=== PATIENT | female | born 1970 | race Caucasian/White ===

== ENCOUNTER 2018-08-04 18:38 | Emergency (ER) | payer BC ==
[~2018-08-04] VITALS: Ht 177.8 cm; Wt 65.8 kg
[2018-08-04] MEDS ORDERED: MORPHINE SULFATE INJ 4 MG/ML INJ IM PRN (19:00)
[2018-08-04] MEDS ORDERED: ONDANSETRON HCL 4 MG ORAL DISINTEGRATING TAB PO ONE (19:00)
--- NOTE | 2018-08-04 19:45 | Diagnostic Imaging Report ---
Exam: Left knee 3 views History: Pain Comparison: None. Findings: No fracture or malalignment. Joint spaces preserved. Prepatellar swelling. Impression: No acute osseous abnormality Prepatellar swelling Signed by: Dr. Cj Cui M.D. on 08/04/2018 7:42 PM
[2018-08-04] MEDS ORDERED: TYLENOL WITH C1 EACH PO (19:53)
[2018-08-04] MEDS ORDERED: IBUPROFEN400 MG PO (19:53)
[2018-08-04] MEDS ORDERED: ZOFRAN ODT4 MG SL (19:53)
== END 2018-08-04 20:28 | disposition home or self-care (01) ==
LOC: FSED 18:38
DX: S80.02XA Contusion of left knee, initial encounter (principal); M25.462 Effusion, left knee; W18.39XA Other fall on same level, initial encounter
CPT/HCPCS: 73562; 99283; J2270; Q0162

== ENCOUNTER 2021-03-29 07:31 | Emergency (ER) | payer BC ==
[~2021-03-29] VITALS: Ht 175.3 cm; Wt 69.0 kg
[~2021-03-29 07:31] MED LIST: IBUPROFEN400 MG PO; TYLENOL WITH C1 EACH PO; ZOFRAN ODT4 MG SL
[2021-03-29] MEDS ORDERED: KETOROLAC TROMETHAMINE 60 MG/2 ML VIAL IM ONE (08:15)
[2021-03-29] MEDS ORDERED: KETOROLAC TROMETHAMINE 60 MG/2 ML VIAL ONE (08:17)
[2021-03-29] MEDS ORDERED: TRAMADOL HCL 50 MG TAB PO STA (08:55)
[2021-03-29] MEDS ORDERED: TRAMADOL HCL 50 MG TAB ONE (09:04)
[2021-03-29] MEDS ORDERED: CIPRO500 MG PO (09:23)
[2021-03-29] MEDS ORDERED: ULTRAM 50MG50 MG PO (09:23)
== END 2021-03-29 09:34 | disposition home or self-care (01) ==
LOC: FSED 08:05
DX: N15.9 Renal tubulo-interstitial disease, unspecified (principal); Z88.5 Allergy status to narcotic agent
CPT/HCPCS: 74176; 81003; 96372; 99283; J1885